=== PATIENT | female | born 1940 | race Caucasian/White ===

== ENCOUNTER 2016-12-22 10:40 | Day surgery (SDC) | payer OTHER ==
[2016-12-22] MEDS ORDERED: BUPIVACAINE/EPI 0.5% 30 ML SDV ONE (11:12)
[2016-12-22] MEDS ORDERED: ceFAZolin 2 GM/DEXTROSE 100 ML IV ONE (12:00)
[2016-12-22 12:05] LABS: ANION GAP 10 mEq/L (8-16); CALCIUM 9.3 mg/dL (8.5-10.4); CARBON DIOXIDE 26 mEq/l (22-31); CHLORIDE 106 mEq/L (97-110); CHOLESTEROL 208 mg/dL (140-220); CHOLESTEROL/HDL RATIO 4.24 RATIO (1.00-4.44); CREATININE 0.8 mg/dL (0.6-1.0); GLOMERULAR FILTRATION RATE > 60; GLUCOSE 92 mg/dL (70-100); HIGH DENSITY LIPOPROTEIN 49 mg/dL (40-85); LDL/HDL RATIO 2.57 RATIO (1.00-3.22); LOW DENSITY LIPOPROTEIN 126 mg/dL (80-100); NON-HIGH DENSITY LIPOPROTEIN 159 mg/dL (90-129); POTASSIUM 3.6 mEq/L (3.5-5.2); SODIUM 142 mEq/L (134-144); TRIGLYCERIDE 168 mg/dL (35-135); VERY LOW DENSITY LIPOPROTEINS 33 mg/dL (8-25)
[2016-12-22] MEDS ORDERED: LR 1,000 ML IV ONE (12:33)
[2016-12-22] MEDS ORDERED: MIDAZOLAM 2 MG/2 ML VIAL ONE (12:52)
[2016-12-22] MEDS ORDERED: PROPOFOL/EMULSION 500 MG/50 ML BOTTLE IV ONE (13:00)
[2016-12-22] MEDS ORDERED: fentaNYL 100 MCG/2 ML INJ ONE ×2 (13:00)
[2016-12-22] MEDS ORDERED: LIDOCAINE 2% 5 ML SDV ONE (13:01)
[2016-12-22] MEDS ORDERED: DEXAMETHASONE 4 MG/ML VIAL ONE (13:01)
[2016-12-22] MEDS ORDERED: ROCURONIUM 50 MG/5 ML VIAL ONE (13:01)
[2016-12-22] MEDS ORDERED: GLYCOPYRROLATE 0.2 MG/1 ML VIAL ONE (13:01)
[2016-12-22] MEDS ORDERED: KETOROLAC 30 MG/1 ML SDV ONE (13:01)
[2016-12-22] MEDS ORDERED: SUGAMMADEX SODIUM 200 MG/2 ML VIAL IVP ONE (13:34)
[2016-12-22] MEDS ORDERED: ONDANSETRON 4 MG/2 ML VIAL ONE (13:35)
--- NOTE | 2016-12-22 15:03 | GOP ---
[f rep st] OPERATIVE REPORT DATE OF OPERATION: 12/22/2016 SURGEON: Rigo Arizmendi MD ELECTROPLATING TECHNICIAN: None. ANESTHESIA: General. PREOPERATIVE DIAGNOSIS: Genuine stress urinary incontinence. POSTOPERATIVE DIAGNOSIS: Genuine stress urinary incontinence. PROCEDURE PERFORMED: 1. Transobturator sling. 2. Cystoscopy. FINDINGS: SPECIMENS: None. ESTIMATED BLOOD LOSS: Scant. DESCRIPTION OF PROCEDURE: The patient was taken to the operating room where she was identified. Gen eral anesthesia was administered and found to be adequate. She was placed in the lithotomy position and prepared and draped in normal sterile fashion. A Joiner catheter was placed in her bladder. A 1 cm midurethral incision was made with a scalpel. Tunnels were created bilaterally to the obturat or internus muscles. Skin incisions were made over the obturator notches. The Halo trocar was place d through the left skin incision and redirected around the ischial pubic rami and out through the vag inal incision using a vaginal finger as a guide. The lateral sulci were examined and no evidence of vaginal injury had occurred. The sling was attached and brought out along the same course. The exac t same procedure was performed on the patient's right side. Again, no evidence of vaginal injury had occurred. The sling was then adjusted to allow a small midurethral gap. The vaginal epithelium was closed with 2-0 Vicryl, the skin with 4-0 Monocryl. Cystoscopy was then performed. Both ureters had vigorous jets of urine. There was no evidence of bl adder nor urethral injury seen. No mesh was seen within the bladder nor urethra. Anesthesia was rev ersed and the patient was taken to the PACU awake, in stable condition. COMPLICATIONS: None. DISPOSITION: Patient stable to PACU. /[id number]/MODL
== END 2016-12-22 17:26 | disposition home or self-care (01) ==
LOC: FSGY 10:40
PROVIDERS: ATTEND Obstetrics & Gynecology
PROC: 0TUC0JZ Supplement Bladder Neck with Synthetic Substitute, Open Approach (ICD-10-PCS; principal; 2016-12-22 13:15)
DX: N39.3 Stress incontinence (female) (male) (principal); N94.10 Unspecified dyspareunia; Z87.440 Personal history of urinary (tract) infections; G47.33 Obstructive sleep apnea (adult) (pediatric); I10 Essential (primary) hypertension; E78.5 Hyperlipidemia, unspecified
CPT/HCPCS: C1771; J0690; J1100; J1885; J2250; J2405; J2704; J3010